=== PATIENT | female | born 1935 | race Caucasian/White ===

== ENCOUNTER 2016-06-27 14:25 | Emergency (ER) | payer OTHER ==
[~2016-06-27] VITALS: Ht 165.1 cm; Wt 68.0 kg
[2016-06-27 14:25] VITALS: BP 127/61
[~2016-06-27 14:25] MED LIST: ASPIRIN ADULT L81 M1 PO; CIPRO500 MG PO; CLARITIN-D 24 H1 T24 PO; CLOPIDOGREL75 MG PO; Cleocin150 MG PO; DOXYCYCLINE MO100 MG PO; GABAPENTIN100 M2 PO; GABAPENTIN400 MG PO; HUMALOG 751 UNIT/0.0 SC; HUMALOG MI100 UNIT/1 SC; HUMALOG MI100 UNIT/1 SQ; HUMALOG MIX75/253 M1 SC; HUMULIN 70/30 703 M1 SC; HUMULIN R100 U/ML SC; HYDRALAZINE HYD50 MG PO; HYDRALAZINE20 MG/M1 IV; INSULIN SC; LISINOPRIL10 MG PO; LOPRESSOR25 MG PO; LOPRESSOR5 MG/5 ML IV; Lopressor25 MG PO; MIRALAX POWDER17 G1 PO; NEURONTIN300 MG PO; NEURONTIN800 MG PO; NOVOLIN 70/30 701 EA; NOVOLIN 70/30 701 EA PO; PLAVIX75 MG PO; PRAVACHOL40 MG PO; PRINIVIL20 MG PO; PROTONIX TR40 MG PO; ZANTAC150 MG PO; ZESTRIL,PRINIVI20 MG PO; ZESTRIL,PRINIVIL5 MG PO; ZOSYN1 SO1 IV
== END 2016-06-27 16:41 | disposition home or self-care (01) ==
LOC: ED 14:25
DX: S60.212A Contusion of left wrist, initial encounter (principal); Z79.4 Long term (current) use of insulin; Z79.01 Long term (current) use of anticoagulants; Z79.899 Other long term (current) drug therapy; W18.30XA Fall on same level, unspecified, initial encounter; Y93.89 Activity, other specified; Y92.9 Unspecified place or not applicable; Y99.9 Unspecified external cause status

== ENCOUNTER 2016-07-23 14:04 | Emergency (ER) | payer MEDICARE ==
[2016-07-23] MEDS ORDERED: RISPERDAL0.5 MG PO (14:49)
[2016-07-23] MEDS ORDERED: REMERON15 M2 PO (14:49)
[2016-07-23] MEDS ORDERED: ASPIRIN CHEWABL81 MG PO (14:50)
[2016-07-23] MEDS ORDERED: CLARITIN LIQUI-10 MG PO (14:50)
[2016-07-23] MEDS ORDERED: VITAMIN D-32000 UNI1 PO (14:50)
[2016-07-23] MEDS ORDERED: PRAVASTATIN SOD40 MG PO (14:50)
[2016-07-23] MEDS ORDERED: ROWEEPRA500 MG PO (14:51)
[2016-07-23] MEDS ORDERED: ACETAMINOPHEN325 M2 PO (14:51)
[2016-07-23] MEDS ORDERED: DOK100 M1 PO (14:51)
[2016-07-23] MEDS ORDERED: LANTUS100 U/ML SC (14:52)
[2016-07-23] MEDS ORDERED: LABETALOL HCL100 MG PO (14:52)
[2016-07-23] MEDS ORDERED: IPRATROPIUM BRO IH (14:53)
[2016-07-23] MEDS ORDERED: LISINOPRIL20 MG PO (14:53)
[2016-07-23] MEDS ORDERED: AMLODIPINE BES1 TA1 PO (14:53)
[2016-07-23 15:21] LABS: BASO # 0.1 10*3/uL (0.0-0.1); BASO % 1.2 % (0.0-1.0); EOS # 0.5 10*3/uL (0.0-0.4); EOS % 4.5 % (1.0-4.0); HEMATOCRIT 35.4 % (37.0-47.0); HEMOGLOBIN 11.5 g/dl (12.0-16.0); IG # 0.1 10*3/uL (0.0-0.1); LYMPH % 8.8 % (27.0-41.0); MEAN CORPUSCULAR HGB 28.3 pg (27.0-31.0); MEAN CORPUSCULAR HGB CONC 32.5 g/dl (33.0-37.0); MONO # 1.4 10*3/uL (0.1-1.0); MONO % 12.4 % (3.0-9.0); NEUT # 8.4 10*3/uL (2.3-7.9); NEUT % 72.5 % (47.0-73.0); PLATELET COUNT AUTOMATED 438 10*3/uL (130-400); RED BLOOD COUNT 4.07 10*6/uL (4.10-5.10); RED CELL DISTRI WIDTH 13.2 % (0-14.5); WHITE BLOOD COUNT 11.5 10*3/uL (4.8-10.8)
[2016-07-23 15:32] LABS: POTASSIUM 5.2 mmol/L (3.5-5.1)
[2016-07-23 16:04] VITALS: BP 148/66
[2016-07-23 16:15] LABS: BILIRUBIN NEGATIVE (NEGATIVE); BLOOD 1+ (NEGATIVE); CLARITY SL CLOUDY (CLEAR); COLOR YELLOW (YELLOW); GLUCOSE NEGATIVE (NEGATIVE); KETONE NEGATIVE (NEGATIVE); LEUKO ESTERASE 3+ (NEGATIVE); NITRITE POSITIVE (NEGATIVE); PH 5.5 (5.0-9.0); PROTEIN TRACE (NEGATIVE); UROBILINOGEN 0.2 E.U./dl (0.2-1.0)
[2016-07-23 16:22] LABS: BACTERIA 3+; MUCOUS TRACE; URINE REFLEX COMMENT YES (NO); WBC TNTC wbc/hpf (0-5)
[2016-07-23] MEDS ORDERED: BACTRIM DS 8001 TA1 PO (16:29)
== END 2016-07-23 16:36 | disposition home or self-care (01) ==
LOC: ED 14:04
PROVIDERS: Emergency Medicine
DX: S00.93XA Contusion of unspecified part of head, initial encounter (principal); M25.562 Pain in left knee; N39.0 Urinary tract infection, site not specified; R31.9 Hematuria, unspecified; I25.10 Atherosclerotic heart disease of native coronary artery without angina pectoris; E66.9 Obesity, unspecified; I12.9 Hypertensive chronic kidney disease with stage 1 through stage 4 chronic kidney disease, or unspecified chronic kidney disease; N18.9 Chronic kidney disease, unspecified; E11.9 Type 2 diabetes mellitus without complications; Z86.73 Personal history of transient ischemic attack (TIA), and cerebral infarction without residual deficits; Z79.82 Long term (current) use of aspirin; Z79.899 Other long term (current) drug therapy; W19.XXXA Unspecified fall, initial encounter; Y93.89 Activity, other specified; Y92.129 Unspecified place in nursing home as the place of occurrence of the external cause; Y99.9 Unspecified external cause status

== ENCOUNTER 2016-08-11 14:09 | Inpatient (IN) | payer MEDICARE ==
[~2016-08-11] VITALS: Ht 162.6 cm; Wt 67.6 kg
--- NOTE | ~2016-08-11 | PR ---
[place], [place] PROGRESS NOTE NAME: DURAN GRAHAM [facility] #: [id number] UNIT #: [id number] ROOM: [facility] DOCTOR: SERJIO MARQUES MD BIRTHDATE: [birth year] DOS: 08/12/2016 SUBJECTIVE: The patient is still not communicating, but looking more awake and alert today. OBJECTIVE: VITAL SIGNS: Blood pressure 132/45, heart rate of 88 beats per minute, breathing 19 times per minute, afebrile, temperature 98.5 degrees Fahrenheit. GENERAL APPEARANCE: The patient is alert and oriented x 3, in no visible distress. Generalized weakness. The patient is not communicating. HEENT AND NECK: Exam within normal limits. CARDIOVASCULAR SYSTEM: Heart rate is regular in rate and rhythm. S1 and S2 normally audible. LUNGS: Clear to auscultation. ABDOMEN: Soft, nontender. No obvious organomegaly. Bowel sounds are present. EXTREMITIES: Without significant cyanosis or edema. IMPRESSION: 1. The patient with severe dehydration, hyperkalemia and acute kidney failure with acute tubular necrosis, improving with hydration. BUN and creatinine were 62 and 1.3 today. Sodium of 150, potassium of 5.2. The patient's kidney failure is being monitored and treated and followed by Nephrology. 2. Coronary artery disease of the [place] vessels without chest pain. 3. Severe hyperkalemia, improved with treatment. The patient was given Kayexalate, bicarb, glucose, calcium gluconate for treatment and potassium levels are being monitored closely. 4. Mixed hyperlipidemia. The patient on Pravachol. 5. Coronary artery disease of the [place] vessels without chest pains. 6. Type 2 diabetes mellitus. Blood sugars are being monitored and treated. 7. Hypotension, resolved with hydration, was secondary to sepsis. SERJIO MARQUES MD CM:PNTRANS 1043 SERJIO MARQUES MD 08/13/16 0209 interface
--- NOTE | ~2016-08-11 | EKG ---
[place], [place] ELECTROCARDIOGRAM REPORT NAME: DURAN GRAHAM UNIT #: [id number] ROOM: 528 DOCTOR: LOUIE BLAND MD BIRTHDATE: [birth year] DOS: 08/11/2016 TIME: 1440 FINDINGS: Normal sinus rhythm at rate of 61. Left anterior fascicular block. Poor precordial R wave progression. Abnormal electrocardiogram. LOUIE BLAND MD CM:EKGRPT:ELECTROCARDIOGRAM REPORT [id number] LOUIE BLAND MD
--- NOTE | ~2016-08-11 | DS ---
[place], [place] DISCHARGE SUMMARY NAME: DURAN GRAHAM [facility] #: [id number] UNIT #: [id number] ROOM: 528 DOCTOR: SERJIO MARQUES MD BIRTHDATE: [birth year] DOS: 08/15/2016 DISCHARGE DIAGNOSES: 1. Severe adult failure to thrive and poor long-term prognosis. 2. Severe dehydration and hyperkalemia and acute over chronic kidney failure from acute tubular necrosis, resolved with treatment. 3. Severe hypernatremia from dehydration, resolved. 4. Severe hyperkalemia, resolved with treatment. 5. Coronary artery disease of the [place] vessels. 6. Hypotension related to sepsis and dehydration, resolved. 7. Type 2 diabetes mellitus. 8. Mixed hyperlipidemia. 9. Uncontrolled type 2 diabetes mellitus with HbA1c of 8. PAST MEDICAL HISTORY: 1. Left occipital stroke. 2. Pancreatic and cecal mass history. 3. Coronary artery disease, 3 cardiac stents placement in 2011 at [facility]. 4. Gastroesophageal reflux disease and esophagitis. 5. Vitamin D deficiency. 6. History of hysterectomy, appendectomy, tonsillectomy and adenoidectomy. HOSPITAL COURSE: The patient was admitted when she presented from [facility] to [facility] with severe hyperkalemia with a potassium level of 6.8. She was also found to be hypernatremic and acute kidney failure, apparently acute tubular necrosis related to dehydration. The patient was treated with hydration and normal saline. She was given Kayexalate, calcium gluconate, sodium bicarbonate, and glucose and potassium normalized. The patient was hydrated with normal saline and serum electrolytes, BUN and creatinine followed, and they have come to baseline with treatment. 1. Severe adult failure to thrive problem and overall poor health. I anticipate similar issues in the future resulting from her overall poor health status. 2. Coronary artery disease of the [place] vessels and stent placements in the past, presently without chest pains. 3. Benign essential hypertension. Blood pressures improved with hydration. The patient was closely monitored in the ICU and later on IMC. 4. Vitamin D deficiency, on replacement. 5. Type 2 diabetes mellitus. Blood sugars are monitored and treated. 6. Mixed hyperlipidemia treated with Pravachol. LABORATORY DATA: Normal serum electrolytes, BUN and creatinine and potassium levels prior to discharging the patient back to the half-way. White cell count of 11,800, hemoglobin 8.4 and generally stable. Urine cultures negative. Hemoglobin A1c of 8. DISCHARGE MANAGEMENT: Check basic metabolic profile and CBC in 1 week, Levemir insulin 20 units subcutaneous daily, Ecotrin 81 mg a day, Plavix 75 mg a day, labetalol 100 mg daily, MiraLax 17 grams b.i.d., Colace 200 mg daily at bedtime, [place], [place] DISCHARGE SUMMARY [facility] #: [id number] UNIT #: [id number] ROOM: 528 DOCTOR: SERJIO MARQUES MD BIRTHDATE: [birth year] simvastatin 40 mg daily, DuoNeb 4 times a day. Dulcolax 10 mg daily p.r.n. for constipation, Dulcolax orally, Dulcolax suppository at bedtime p.r.n. for constipation. Temazepam 15 mg at bedtime p.r.n. for sleep, Tylenol mg t.i.d. p.r.n. for pain and fever. Consult Dr. Katz, negative cleaner group for foot wound and followup and get wound care nurse to follow the patient. One hour time was spent on patient management and discharge today. SERJIO MARQUES MD CM:DISCHARG 1640 232 SERJIO MARQUES MD 08/15/16 2327 interface
--- NOTE | ~2016-08-11 | WRIGHTHP ---
[place], [place] PATIENT HISTORY AND PHYSICAL EXAM NAME: DURAN GRAHAM [facility] #: [id number] UNIT #: [id number] ROOM: [facility] DOCTOR: SERJIO MARQUES MD BIRTHDATE: [birth year] DOS: 08/11/2016 HISTORY OF PRESENT ILLNESS: The patient is an 80-year-old female with past medical history of, 1. Left occipital stroke. 2. Pancreatic and cecal mass. 3. Type 2 diabetes mellitus. 4. Benign essential hypertension. 5. Coronary artery disease of the [place] vessels. 6. Diabetic nephropathy. 7. Coronary artery disease with 3 cardiac stent placements in [address] [facility], gastroesophageal reflux disease and esophagitis, vitamin D deficiency, history of hysterectomy, appendectomy, tonsillectomy and adenoidectomy. The patient was sent over from [facility] to [facility] with severe hyperkalemia and the potassium level of 6.8. Potassium level was found to be even higher in the Emergency Department. In the ER, the patient was diagnosed as having acute hyperkalemia and acute renal failure and recommended for admission and further management. After admission, the patient barely wakes up, she has no complaints. SYSTEMS REVIEW: LUNGS: No recent complains of shortness of breath. GASTROINTESTINAL: No recent nausea, vomiting, diarrhea, or constipation. CARDIOVASCULAR SYSTEM: No recent complaints of any chest pains or palpitations. SOCIAL HISTORY: No recent history of smoking cigarettes, alcohol and drug abuse. FAMILY HISTORY: Noncontributory. ALLERGIES: No known drug allergies. PHYSICAL EXAMINATION: GENERAL: The patient barely wakes up, appears in no discomfort, generally very weak and lethargic. VITAL SIGNS: Blood pressure 125/38, heart rate of 81 beats per minute, breathing 20 times per minute, temp 98 degrees Fahrenheit. Except for the patient lethargic, has generalized weakness. HEENT AND NECK: Extraocular movements are intact. Sclerae are anicteric. Oral mucosa is moist and clean. No obvious facial weakness. Neck is supple without any lymphadenopathy. No thyromegaly. No JVD. No carotid arterial bruits. LUNGS: Clear to auscultation. No wheezing. No rhonchi. CARDIOVASCULAR SYSTEM: Heart rate is regular in rate and rhythm. S1 and S2 normally audible. No significant murmur or any other abnormal cardiac sounds. ABDOMEN: Soft, nontender. No obvious organomegaly. Bowel sounds are present. No obvious herniation. EXTREMITIES: On the right heel, stage 2 decubitus. CENTRAL NERVOUS SYSTEM: Alert and oriented x 3. Cranial nerves II-XII are intact. Speech is normal. The patient is able to move all extremities. Normal [place], [place] PATIENT HISTORY AND PHYSICAL EXAM NAME: DURAN GRAHAM [facility] #: [id number] UNIT #: [id number] ROOM: [facility] DOCTOR: SERJIO MARQUES MD BIRTHDATE: [birth year] muscle strength. Deep tendon reflexes are equal on both sides. Plantars were downgoing. LABORATORY DATA: Potassium level elevated to 7.4, CO2 at 19, magnesium level 3, BUN and creatinine 87 and 2. Sugar of 206. White cell count elevated to 15,000, hemoglobin 10.5. IMPRESSION: 1. The patient presenting with severe dehydration, hyperkalemia and acute kidney failure, probable acute tubular necrosis to be treated with hydration with normal saline. The patient already received Kayexalate. Sodium bicarbonate, calcium gluconate, dextrose and Novolin R insulin was given in the Emergency Department. The patient has been started on hydration with normal saline and I will repeat a stat basic metabolic profile. If the patient does not start improving immediately, I will get a Nephrology consult. 2. 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 3. History of coronary artery disease of the [place] vessels without recent chest pains. 4. Benign essential hypertension with controlled blood pressures to be closely monitored in the ICU. 5. Vitamin D deficiency, to be replaced with supplements. 6. Type 2 diabetes mellitus, we will monitor blood sugars and treat accordingly. 7. Coronary artery disease of the [place] vessels without any recent chest pains. I will continue her aspirin. 8. Mixed hyperlipidemia treated with Pravachol. SERJIO MARQUES MD CM:HISPHYS:PATIENT HISTORY AND PHYSICAL EXAMINATION 1725 25 SERJIO MARQUES MD 08/11/162126 interface
--- NOTE | ~2016-08-11 | PR ---
[place], [place] PROGRESS NOTE NAME: DURAN GRAHAM UNIT #: [id number] ROOM: 528 DOCTOR: SERJIO MARQUES MD BIRTHDATE: [birth year] DOS: 08/14/2016 SUBJECTIVE: The patient is gradually becoming more awake and alert and stronger with treatment. OBJECTIVE: VITAL SIGNS: Blood pressure 120/56, heart rate of 76 beats per minute, breathing 18 times per minute, temperature 98 degrees Fahrenheit. GENERAL APPEARANCE: The patient is alert and oriented x 3, in no visible distress. HEENT AND NECK: Exam within normal limits. CARDIOVASCULAR SYSTEM: Heart rate is regular in rate and rhythm. S1 and S2 normally audible. LUNGS: Clear to auscultation. ABDOMEN: Soft, nontender. No obvious organomegaly. Bowel sounds are present. EXTREMITIES: Without significant cyanosis or edema. Generalized weakness. IMPRESSION: 1. Severe adult failure to thrive. The patient has improved with treatment, but long-term prognosis remains poor. 2. Severe dehydration and hyperkalemia, acute kidney failure and acute tubular necrosis, all improved with hydration. 3. Severe hypernatremia, improving now since her hydration was changed to half normal saline. The patient being encouraged to eat and drink fluids. 4. Severe hyperkalemia related to kidney failure. The acute kidney failure is improving with treatment. 5. Coronary artery disease of [place] vessels without chest pains. 6. Hypotension, dehydration and sepsis, resolved with treatment. 7. Type 2 diabetes mellitus. Blood sugars are being monitored and treated. 8. Mixed hyperlipidemia, treated with Pravachol. 9. Uncontrolled type 2 diabetes mellitus with hemoglobin A1c of 8. Blood sugars are being monitored and treated and are reasonably controlled, ranging between 130-150 mostly during this admission. [place], [place] PROGRESS NOTE NAME: DURAN GRAHAM UNIT #: [id number] ROOM: 528 DOCTOR: SERJIO MARQUES MD BIRTHDATE: [birth year] SERJIO MARQUES MD CM:PNTRANS 1410 0311 SERJIO MARQUES MD 08/15/16 0311 interface
[~2016-08-11 14:09] MED LIST changes: +ACETAMINOPHEN325 M2 PO; +AMLODIPINE BES1 TA1 PO; +ASPIRIN CHEWABL81 MG PO; +BACTRIM DS 8001 TA1 PO; +CLARITIN LIQUI-10 MG PO; +DOK100 M1 PO; +IPRATROPIUM BRO IH; +LABETALOL HCL100 MG PO; +LANTUS100 U/ML SC; +LISINOPRIL20 MG PO; +PRAVASTATIN SOD40 MG PO; +REMERON15 M2 PO; +RISPERDAL0.5 MG PO; +ROWEEPRA500 MG PO; +VITAMIN D-32000 UNI1 PO
[2016-08-11 14:18] VITALS: BP 128/60
[2016-08-11 14:50] LABS: BASO # 0.1 10*3/uL (0.0-0.1); BASO % 0.7 % (0.0-1.0); EOS # 0.8 10*3/uL (0.0-0.4); EOS % 5.1 % (1.0-4.0); HEMATOCRIT 33.7 % (37.0-47.0); HEMOGLOBIN 10.5 g/dl (12.0-16.0); IG # 0.1 10*3/uL (0.0-0.1); LYMPH # 1.7 10*3/uL (1.3-4.4); LYMPH % 11.2 % (27.0-41.0); MEAN CELL VOLUME 89.9 fl (81.0-99.0); MEAN CORPUSCULAR HGB CONC 31.2 g/dl (33.0-37.0); MEAN PLATELET VOLUME 10.2 fl (9.6-12.3); MONO # 0.8 10*3/uL (0.1-1.0); MONO % 4.9 % (3.0-9.0); NEUT # 11.9 10*3/uL (2.3-7.9); NEUT % 77.5 % (47.0-73.0); PLATELET COUNT AUTOMATED 523 10*3/uL (130-400); RED BLOOD COUNT 3.75 10*6/uL (4.10-5.10); RED CELL DISTRI WIDTH 14.3 % (0-14.5); WHITE BLOOD COUNT 15.4 10*3/uL (4.8-10.8)
[2016-08-11 15:04] LABS: POTASSIUM 7.4 mmol/L (3.5-5.1)
[2016-08-11 15:43] VITALS: BP 96/54
[2016-08-11 16:11] LABS: BILIRUBIN NEGATIVE (NEGATIVE); BLOOD NEGATIVE (NEGATIVE); CLARITY CLEAR (CLEAR); COLOR YELLOW (YELLOW); GLUCOSE 1+ (NEGATIVE); KETONE NEGATIVE (NEGATIVE); LEUKO ESTERASE TRACE (NEGATIVE); NITRITE NEGATIVE (NEGATIVE); PROTEIN NEGATIVE (NEGATIVE); UROBILINOGEN 0.2 E.U./dl (0.2-1.0)
[2016-08-11 16:15] VITALS: BP 125/38
[2016-08-11 16:19] LABS: EPITHELIAL CELLS 0-2
[2016-08-11 16:20] LABS: BACTERIA TRACE; URINE REFLEX COMMENT YES (NO)
[2016-08-11] MEDS ORDERED: EXELON9.5 MG/24 TD (17:05)
[2016-08-11] MEDS ORDERED: CYMBALTA60 MG PO (17:06)
[2016-08-11] MEDS ORDERED: NATURE'S BLEND F1 MG PO (17:08)
[2016-08-11] MEDS ORDERED: FLUTICASON0.05 MG/Ac NAS (17:13)
[2016-08-11] MEDS ORDERED: HUMALOG100 UNIT/2 SQ (17:14)
[2016-08-11 18:10] LABS: POTASSIUM 5.8 mmol/L (3.5-5.1)
[2016-08-11 20:00] VITALS: BP 122/47
[2016-08-12] VITALS: BP 132/61
[2016-08-12 04:00] VITALS: BP 130/58
[2016-08-12 05:53] LABS: BASO # 0.1 10*3/uL (0.0-0.1); BASO % 0.8 % (0.0-1.0); EOS # 0.8 10*3/uL (0.0-0.4); EOS % 6.3 % (1.0-4.0); HEMATOCRIT 30.1 % (37.0-47.0); HEMOGLOBIN 9.1 g/dl (12.0-16.0); IG # 0.1 10*3/uL (0.0-0.1); LYMPH # 1.6 10*3/uL (1.3-4.4); LYMPH % 12.3 % (27.0-41.0); MEAN CELL VOLUME 89.9 fl (81.0-99.0); MEAN CORPUSCULAR HGB 27.2 pg (27.0-31.0); MEAN CORPUSCULAR HGB CONC 30.2 g/dl (33.0-37.0); MEAN PLATELET VOLUME 10.8 fl (9.6-12.3); MONO % 7.5 % (3.0-9.0); NEUT # 9.6 10*3/uL (2.3-7.9); NEUT % 72.6 % (47.0-73.0); PLATELET COUNT AUTOMATED 455 10*3/uL (130-400); RED BLOOD COUNT 3.35 10*6/uL (4.10-5.10); RED CELL DISTRI WIDTH 14.4 % (0-14.5); WHITE BLOOD COUNT 13.2 10*3/uL (4.8-10.8)
[2016-08-12 06:12] LABS: MAGNESIUM 2.4 mg/dL (1.5-2.1); PHOSPHOROUS 2.6 mg/dL (2.5-4.9); POTASSIUM 5.2 mmol/L (3.5-5.1)
[2016-08-12 06:18] LABS: PROTHROMBIN TIME 10.3 SECONDS (9.0-12.4)
[2016-08-12 06:19] LABS: BILIRUBIN, TOTAL 0.3 mg/dl (0.2-1.0); FREE T4 1.06 ng/dl (0.76-1.46); THYROID STIM HORMONE (HS) 1.08 uIU/ml (0.358-4.75)
[2016-08-12 08:00] VITALS: BP 132/45
[2016-08-12 09:14] LABS: VITAMIN D, 25-HYDROXY 30.2 ng/mL (30-100)
[2016-08-12 09:21] LABS: FOLIC ACID > 24.00 ng/mL (>5.38)
[2016-08-12 12:00] VITALS: BP 123/37
[2016-08-12 16:00] VITALS: BP 140/60
[2016-08-12 20:00] VITALS: BP 135/58
[2016-08-13] VITALS: BP 130/67
[2016-08-13 04:00] VITALS: BP 165/63
[2016-08-13 06:11] LABS: CARBON DIOXIDE 21 mmol/L (21-32); CHLORIDE 121 mmol/L (98-107); EST GLOM FILT AFRICAN AMERICAN > 60 ml/min; GLUCOSE 151 mg/dL (65-99); SODIUM 150 mmol/L (136-145)
[2016-08-13 06:56] LABS: BUN 38 mg/dl (7-24)
[2016-08-13 06:57] LABS: POTASSIUM 4.1 mmol/L (3.5-5.1)
[2016-08-13 08:00] VITALS: BP 166/67
[2016-08-13 12:00] VITALS: BP 166/67
[2016-08-13 16:00] VITALS: BP 135/55
[2016-08-13 20:00] VITALS: BP 119/53
[2016-08-14] VITALS: BP 153/63
[2016-08-14 06:52] LABS: BUN 23 mg/dl (7-24); CARBON DIOXIDE 22 mmol/L (21-32); CHLORIDE 118 mmol/L (98-107); EST GLOM FILT AFRICAN AMERICAN > 60 ml/min; GLUCOSE 137 mg/dL (65-99); POTASSIUM 3.8 mmol/L (3.5-5.1); SODIUM 148 mmol/L (136-145)
[2016-08-14 08:00] VITALS: BP 120/56
[2016-08-14 12:00] VITALS: BP 178/76
[2016-08-14 16:00] VITALS: BP 151/68
[2016-08-14 20:00] VITALS: BP 135/58
[2016-08-15] VITALS: BP 143/57
[2016-08-15 06:27] LABS: BASO # 0.1 10*3/uL (0.0-0.1); BASO % 0.7 % (0.0-1.0); EOS % 8.4 % (1.0-4.0); HEMATOCRIT 27.1 % (37.0-47.0); HEMOGLOBIN 8.4 g/dl (12.0-16.0); IG # 0.1 10*3/uL (0.0-0.1); LYMPH # 2.5 10*3/uL (1.3-4.4); LYMPH % 21.5 % (27.0-41.0); MEAN CELL VOLUME 89.7 fl (81.0-99.0); MEAN CORPUSCULAR HGB 27.8 pg (27.0-31.0); MEAN PLATELET VOLUME 10.7 fl (9.6-12.3); MONO # 0.9 10*3/uL (0.1-1.0); MONO % 7.5 % (3.0-9.0); NEUT # 7.3 10*3/uL (2.3-7.9); NEUT % 61.4 % (47.0-73.0); PLATELET COUNT AUTOMATED 345 10*3/uL (130-400); RED BLOOD COUNT 3.02 10*6/uL (4.10-5.10); RED CELL DISTRI WIDTH 14.2 % (0-14.5); WHITE BLOOD COUNT 11.8 10*3/uL (4.8-10.8)
[2016-08-15 06:49] LABS: BUN 18 mg/dl (7-24); CARBON DIOXIDE 23 mmol/L (21-32); CHLORIDE 114 mmol/L (98-107); EST GLOM FILT AFRICAN AMERICAN > 60 ml/min; GLUCOSE 142 mg/dL (65-99); POTASSIUM 3.5 mmol/L (3.5-5.1); SODIUM 144 mmol/L (136-145)
[2016-08-15 08:00] VITALS: BP 134/42
[2016-08-15 12:00] VITALS: BP 152/59
[2016-08-15] MEDS ORDERED: LEVEMIR10 ML SC (15:31)
[2016-08-15 16:00] VITALS: BP 168/60
== END 2016-08-15 18:02 | DRG 871 ==
LOC: ED 14:09 → ICCU 15:13 → EDHOLD 15:13 → ICCU 15:44 → 5E 08-13 20:58
PROVIDERS: Emergency Medicine; Internal Medicine
DX: A41.9 Sepsis, unspecified organism (principal); N17.0 Acute kidney failure with tubular necrosis; E87.0 Hyperosmolality and hypernatremia; E87.5 Hyperkalemia; E86.0 Dehydration; N18.9 Chronic kidney disease, unspecified; I25.10 Atherosclerotic heart disease of native coronary artery without angina pectoris; E78.2 Mixed hyperlipidemia; R62.7 Adult failure to thrive; E11.22 Type 2 diabetes mellitus with diabetic chronic kidney disease; I12.9 Hypertensive chronic kidney disease with stage 1 through stage 4 chronic kidney disease, or unspecified chronic kidney disease; E11.65 Type 2 diabetes mellitus with hyperglycemia; E55.9 Vitamin D deficiency, unspecified; K21.9 Gastro-esophageal reflux disease without esophagitis; Z90.49 Acquired absence of other specified parts of digestive tract; Z95.5 Presence of coronary angioplasty implant and graft; Z86.73 Personal history of transient ischemic attack (TIA), and cerebral infarction without residual deficits; Z90.710 Acquired absence of both cervix and uterus

== ENCOUNTER 2016-09-05 15:26 | Inpatient (IN) | payer MEDICARE ==
[~2016-09-05] VITALS: Ht 167.6 cm; Wt 66.8 kg
--- NOTE | ~2016-09-05 | PROC NOTE ---
[place], [place] PROCEDURE NOTE NAME: DURAN GRAHAM [facility] #: [id number] UNIT #: [id number] ROOM: 422 DOCTOR: JOSE REYNA BIRTHDATE: [birth year] DOS: 09/06/2016 MODIFIED BARIUM SWALLOW LOCATION: [facility], room 422, bed 1. DOCTOR: Dr. Huizar. RADIOLOGIST: Dr. Khan. BACKGROUND INFORMATION: The patient, an 80-year-old female, was seen for modified barium swallow. This test was ordered to rule out aspiration and determine most appropriate diet. Reports reveal that patient is coughing on liquids. The patient is diagnosed with pneumonia and severe sepsis. Further medical history includes CVA, hypertension, diabetes, dementia, CAD and glaucoma. This patient currently receives a regular diet and thin liquids. For today's assessment, the patient was alert, but with significant generalized weakness. She was receiving oxygen via nasal cannula. The patient was minimally verbal. Oral peripheral examination revealed presence of natural teeth which were in fair to good condition. Lingual and labial skills were severely impaired in strength and range of motion. The patient was unable to volitionally swallow or cough. METHODS AND MATERIALS USED FOR THE EXAM: The patient was positioned in the lateral plane and examination was viewed under fluoroscopy. The patient was presented with a variety of consistencies to assess swallowing skills including applesauce mixed with barium presented in quarter teaspoon amounts, barium-coated banana, presented in small bite size piece and nectar thick barium taken by cup and presented in single sip size amount. ORAL PHASE: The patient achieved adequate labial seal around cup and spoon with no anterior loss. Bolus formation was mildly impaired with all consistencies. Oral transit time was mildly impaired with puree and solids. Mastication of soft solids was slow but functional. Tongue to palate contact was within normal limits. Tongue to posterior pharyngeal wall contact was within normal limits. Velar functioning was within normal limits with no nasal regurgitation. PHARYNGEAL PHASE: The pharyngeal swallow was mildly to moderately impaired with all consistencies given with premature loss into the vallecula prior to the initiation of the swallow. Once the swallow occurred, laryngeal elevation and epiglottic function were adequate and no penetration or aspiration occurred with any consistency given. ESOPHAGEAL PHASE: This phase of the swallow was not formally assessed during this examination. IMPRESSIONS AND RECOMMENDATIONS: Based upon assessment results, this 80-year-old female presents with a [id number] oropharyngeal dysphagia. She exhibited impaired bolus formation, transfer and delayed swallow. No penetration or aspiration occurred during the study. The patient is at [place], [place] PROCEDURE NOTE NAME: DURAN GRAHAM UNIT #: [id number] ROOM: [facility] DOCTOR: JOSE REYNA BIRTHDATE: [birth year] risk, however, for aspiration due to her condition. Recommend the patient receive a pureed diet and nectar thick liquid. Recommend followup therapy focusing on oral and pharyngeal strengthening exercises, thermal stimulation to help improve initiation of swallow and use of safe swallow strategies such as upright positioning for meals, small bites and sips and alternating consistencies. Education will also be provided to caregivers to ensure safety with highest level diet. Results and recommendations were shared with the patient's nurse who verbalized understanding. Thank you very much for this referral. Should you have any questions regarding this patient, please contact the speech pathologist at [phone]. JOSE REYNA CM:PROCNOTE:PROCEDURE NOTE [phone] JOSE REYNA
--- NOTE | ~2016-09-05 | CON ---
[place], [place] REPORT OF CONSULTATION NAME: DURAN GRAHAM [facility] #: [id number] UNIT #: [id number] ROOM: 422 DOCTOR: KELBY TRUJILLO MD BIRTHDATE: [birth year] DOS: 09/07/2016 REPORT HISTORY OF PRESENT ILLNESS: The patient is a pleasant elderly woman who noticed to have cough and was sent to the Emergency Room. She was found to have halfway acquired pneumonia and sepsis. Further workup revealed that her white count is 26,000 as well as she had progressive anemia. I am subsequently consulted for further evaluation and management. The patient not able to give any history, does open eyes to verbal command. PAST MEDICAL HISTORY: As per record of altered mental status, coronary artery disease, chronic kidney disease, colon neoplasm, CVA, diabetes, fall at halfway, head contusion, obesity, pancreatic mass, poorly-controlled diabetes mellitus, poorly-controlled hypertension, stroke, UTI. SOCIAL HISTORY: snf resident for more than a year. ALLERGIES: No known allergies. MEDICATIONS: On amlodipine, aspirin, vitamin D3, clopidogrel, sodium docusate, Cymbalta, folic acid, insulin, labetalol, lisinopril, loratadine, risperidone, pravastatin. PHYSICAL EXAMINATION: GENERAL: On examination, she is a pleasant woman, not able to give any history, responds to verbal command. VITAL SIGNS: Stable. Afebrile. HEENT: Normocephalic, atraumatic. Pupils reactive. NECK: Supple. No JVD, thyromegaly, or lymphadenopathy. LUNGS: Clear to auscultation. HEART: S1, S2. No S3. ABDOMEN: Soft and nontender. Bowel sounds positive. EXTREMITIES: Positive pulses. NEUROLOGIC: Grossly intact. Moves all extremities. SKIN: Warm and dry. HEMATOLOGIC: No rashes or ulcers. REVIEW OF SYSTEMS: Unable to give review of systems. LABORATORY DATA: Sodium 143, potassium 3.8, chloride 112, bicarbonate 23, BUN 35, creatinine of more than 60. White count of 15.3, hemoglobin 8.0, hematocrit 25.7, platelet count 387. ASSESSMENT: 1. Anemia, probably of chronic disease. 2. Chronic kidney disease. 3. Severe sepsis. 4. Bilateral pneumonia. 5. Leukocytosis, reactive. [place], [place] REPORT OF CONSULTATION NAME: DURAN GRAHAM UNIT #: [id number] ROOM: 422 DOCTOR: CASSANDRA RAMOS,KELBY BIRTHDATE: [birth year] PLAN: Workup for anemia has been initiated. We will review peripheral smears as well as continue antibiotics. I except her hemoglobin and hematocrit to improve once her overall condition improves. If not, then further intervention. In the meantime, if hemoglobin drops further, then further intervention. We will keep a watch on her count. Thanks for consulting and letting me participate in the care of this interesting patient. KELBY TRUJILOL MD CM:CONSTR:REPORT OF CONSULTATION 1233 09/08/16 0117 interface
--- NOTE | ~2016-09-05 | PR ---
[place], [place] PROGRESS NOTE NAME: DURAN GRAHAM UNIT #: [id number] ROOM: 422 DOCTOR: PRABHA RAMOS,ALONA Paredes BIRTHDATE: [birth year] DOS: 09/08/2016 ADDENDUM I agree with the above plans as outlined above. We will follow the patient clinically and adjust accordingly. ALONA ARMANDO MD CM:PNTRANS 19 50 ALONA ARMANDO MD 09/08/16 225 interface
--- NOTE | ~2016-09-05 | PR ---
[place], [place] PROGRESS NOTE NAME: DURAN GRAHAM [facility] #: [id number] UNIT #: [id number] ROOM: 422 DOCTOR: WOLFGANG DANIEL,JULY BIRTHDATE: [birth year] DOS: 09/08/2016 SUBJECTIVE: The patient is an 80-year-old female, being followed for healthcare-associated pneumonia. She had a CT of the abdomen and pelvis that demonstrated multiple pulmonary nodules and probable liver metastasis. Dr. Huizar is following her and recommending hospice; however, she has not been made hospice yet. She is a DNRCC. Blood cultures are negative. Her MRSA screen was negative. Her pneumonia was also demonstrated in the lung bases on the CT of the abdomen and pelvis. She continues with frequent cough. No nausea or vomiting. No diarrhea. No fevers. No rash. Denies any pain. VITAL SIGNS: Show temperature 98.2, pulse 80, respirations 20, BP 152/56. GENERAL: An 80-year-old female in no acute distress, nontoxic in appearance. HEAD, EYES, EARS, NOSE AND THROAT: Normocephalic. No thrush. LUNGS: Coarse rales bilaterally. Respirations even and unlabored. HEART: Regular rhythm. No murmur appreciated. Frequent cough noted. ABDOMEN: Soft, nontender. EXTREMITIES: No edema. Poor musculature. SKIN: Warm, pale, dry, free of rashes. ASSESSMENT: Healthcare-associated pneumonia, possibly CA with liver metastasis. PLAN: Await possible referral for hospice. Continue Zosyn for now. Case discussed with Dr. Alona Armando. ANN FREDY GOSS ALONA ARMANDO MD CM:MARY BETH 175 14 WOLFGANG DANIEL 09/08/16 2020 interface
--- NOTE | ~2016-09-05 | CON ---
[place], [place] REPORT OF CONSULTATION NAME: DURAN GRAHAM [facility] #: [id number] UNIT #: [id number] ROOM: 422 DOCTOR: ISAAK RutherfordMILEY BIRTHDATE: [birth year] DOS: 09/07/2016 WOUND CARE CONSULTATION HISTORY OF PRESENT ILLNESS: This is an 80-year-old female who resides in a nursing care facility. She was admitted with hypoxia and a worsening cough for 3 days. She was felt to have sepsis and correction acquired pneumonia. Her white count was markedly elevated at 26,000. PAST MEDICAL HISTORY: Significant for acute renal failure, bilateral pneumonia, severe sepsis, acute hyperkalemia, hyperglycemia, leukocytosis, normocytic anemia, altered mental status, coronary artery disease, chest pain, chronic kidney disease, colonic neoplasm, contusion of the left breast, CVA, falls at correction, generalized weakness, head contusion, noncompliance with medication regimen, obesity, pancreatic mass, poorly controlled diabetes, poorly controlled hypertension, stroke, urinary tract infection. SOCIAL HISTORY: She is a [facility] resident. She has been there for more than 1 year. Charts do not indicate any smoking history or alcohol use. ALLERGIES: No known drug allergies. CURRENT MEDICATIONS: Zosyn 4.5 g IV q. 6 hours, vancomycin 1000 mg IV, Lovenox 40 subq daily, Humalog sliding scale, pneumococcal vaccine was given, Restoril 15 mg at bedtime p.r.n., Zofran 4 mg IV q.6 hours, milk of mag 30 mL p.o. p.r.n., Dulcolax p.r.n. and Tylenol p.r.n. REVIEW OF SYSTEMS: Really unobtainable at this time. She offers no specific complaints. I was consulted for a pressure injury of her sacral buttock area. When I asked her if she knew how long she has had it, she said possibly a week, but she is not quite sure. Other review of systems are unobtainable at this point. PHYSICAL EXAMINATION: VITAL SIGNS: She is currently afebrile at 98.6, pulse of 77, respirations 20, blood pressure is 144/61, sats are 94% on oxygen. GENERAL: This is an elderly female who appears markedly debilitated, chronically ill, lying in bed with a harsh moist cough noted. She is not in any acute respiratory distress. She is somewhat pale to exam. She is arousable. Her oropharynx is clear. EENT: Extraocular movements are intact. Sclerae anicteric. NECK: There is no JVD. LUNGS: Have occasional scattered rhonchi throughout. CARDIOVASCULAR: S1, S2 regular rate and rhythm. ABDOMEN: Soft, nontender, nondistended, positive bowel sounds. [place], [place] REPORT OF CONSULTATION NAME: DURAN GRAHAM UNIT #: [id number] ROOM: 422 DOCTOR: MILEY MULLIGAN M.D. BIRTHDATE: [birth year] EXTREMITIES: There is no edema. She has a very small ulcer of her heel no more than a size of an eraser head. It is dry small eschar area. There is no purulence or infection. No cellulitis. Her pedal pulses are difficult to feel. Her toes are warm. She has got good capillary refill and there is no calf tenderness. She also has an area that is slightly red on the left foot. She has an offloading boot that is present. There seems to be rubbing on the medial aspect of the metatarsal head area of the foot. So, I would pad and protect this area and watching carefully, so the boot does not create any new ulcerations on her. Her right foot has a small eschar area that is on the plantar aspect of the third digit of the toe. It looks stable due to all the eschar area with a minimal amount of callus around it. It is not tender. It is not infected. There is no drainage and it is dry. Once again, her pedal pulses are difficult to feel. She has got good capillary refill and her toes are warm. On her sacral area, mostly on the buttock area on the right side, there is a purple maroon discoloration consistent with a deep tissue injury on the buttock area that is approximately measuring 4 cm x 1.5 cm. There is no depth. Still now it is closed, it is not open at this time. It is mostly on the right buttock area. LABORATORY DATA: Show white count was 15.3 down from 21.5, hemoglobin is 8, platelets are 387. She has a low lymphocyte count. Reticulocyte count is 2.65. Chem 7 shows a chloride of 114, BUN of 22, creatinine of 0.94, glucose of 137, alk phos is 239, albumin is low at 1.9. She had a chest x-ray done, which showed new small bilateral bibasilar infiltrates. She had swallowing study done. Recommendations for diet were made to receive pureed diet and nectar thickened liquids per speech pathology. ASSESSMENT AND PLAN: Multiple medical problems in this patient who is markedly debilitated. She has multiple pressure ulcers. Orders have been written for them already. I would continue with the skin prep and Optifoam for the buttock area and encourage offloading. She was right on her back side when we entered the room on the wound, so trying to offload it and to avoid direct pressure to this area would be the best thing that we could do. Also, she does have a very small ulcer on her left heel. She already has heel offloading devices. Ordered Optifoam and skin prep to those as well, which is fine. I would like to also have them pad the medial aspect of the left foot to avoid any further pressure areas as it does not seem like it was causing a possible rubbing area on that foot from the heel lift. She does seem to keep her leg externally rotated. We should also try to encourage use of pillows as well to help with this. She is markedly debilitated and has other multiple medical problems that are being managed by her medical team. [place], [place] REPORT OF CONSULTATION NAME: DURAN GRAHAM UNIT #: [id number] ROOM: 422 DOCTOR: MILEY MULLIGAN M.D. BIRTHDATE: [birth year] MILEY MULLIGAN MD CM:CONSTR:REPORT OF CONSULTATION 1524 09/12/16 1208 interface
--- NOTE | ~2016-09-05 | PR ---
[place], [place] PROGRESS NOTE NAME: DURAN GRAHAM UNIT #: [id number] ROOM: 422 DOCTOR: CM PETERSON MD BIRTHDATE: [birth year] DOS: SUBJECTIVE: The patient is an 80-year-old female being followed for aspiration pneumonia. She is alert, confused, yelling out, complaining of back pain. Apparently, hospice has been consulted. Denies any nausea, vomiting or diarrhea. No rash or itch. Cough is improving. No shortness of breath currently. She has been afebrile. Temperature 97.9, pulse 73, respirations 18, BP 162/58. CURRENT MEDICATIONS: Include vitamin D, risperidone, MiraLax, folic acid, Cymbalta, Plavix, aspirin, Norvasc, Exelon, Remeron, Zestril, Keppra, Normodyne, Levemir, Zocor, Mucinex, Zosyn, DuoNeb, Humalog, Restoril, Zofran. LABORATORY DATA: Shows WBC 13.1, platelets 430. BUN 8, creatinine 0.66, AST 65, ALT 66. CT of her abdomen and pelvis showed multiple pulmonary nodules and likely liver metastasis. Her blood cultures are negative. MRSA screen was negative. PHYSICAL EXAMINATION: GENERAL: An 80-year-old female, confused, yelling out, complaining of back pain. HEAD, EYES, EARS, NOSE AND THROAT: Normocephalic. No thrush. LUNGS: Diminished bilaterally with rales. Respirations even and unlabored. HEART: Regular rhythm. No murmur appreciated. ABDOMEN: Soft, nondistended. EXTREMITIES: No edema or cyanosis. SKIN: Warm, pale, dry, free of rashes. ASSESSMENT: Pneumonia, likely aspiration, health care associated. PLAN: She is currently on Zosyn and this may be stopped if she is discharged to [place] with hospice tomorrow. [place], [place] PROGRESS NOTE NAME: DURAN GRAHAM UNIT #: [id number] ROOM: 422 DOCTOR: MC PETERSON MD BIRTHDATE: [birth year] CM PETERSON MD CM:MARY BETH 1743 [id number] CM PETERSON MD 09/09/16 1827 interface
--- NOTE | ~2016-09-05 | PR ---
[place], [place] PROGRESS NOTE NAME: DURAN GRAHAM UNIT #: [id number] ROOM: 422 DOCTOR: PRABHA RAMOS,ALONA Paredes BIRTHDATE: [birth year] DOS: 09/07/2016 ADDENDUM INFECTIOUS DISEASE I agree with the above plans as described and follow the patient up clinically and adjust accordingly. ALONA ARMANDO MD CM:PNTRANS 12 44 ALONA ARMANDO MD 09/08/16 2245 interface
--- NOTE | ~2016-09-05 | PR ---
[place], [place] PROGRESS NOTE NAME: DURAN GRAHAM UNIT #: [id number] ROOM: 422 DOCTOR: PRABHA RAMOS,ALONA Paredes BIRTHDATE: [birth year] DOS: 09/09/2016 ADDENDUM I agree with above plans on the patient's progress. We will follow the patient clinically and make appropriate changes in therapy. ALONA ARMANDO MD CM:PNTRANS 1735 36 ALONA ARMANDO MD 09/11/161836 interface
--- NOTE | ~2016-09-05 | CON ---
[place], [place] REPORT OF CONSULTATION [id number] UNIT #: [id number] ROOM: 422 DOCTOR: WOLFGANG DANIEL,JULY BIRTHDATE: [birth year] DOS: 09/05/2016 HISTORY OF PRESENT ILLNESS: Ruby is an 80-year-old female who was admitted from [facility] with significant leukocytosis, white count of 26,000 down to 21,000, elevated lactic acid as well as elevated BUN and sodium. Chest x-ray showed small bibasal infiltrate. She is now on IV fluids. She was started on vancomycin, Zosyn and Levaquin on admission. ID was consulted for healthcare-associated pneumonia. Chest x-ray film reviewed. MRSA screen is pending. Blood cultures pending. She denies any nausea or vomiting. States she has had a cough for approximately 3 weeks, which is nonproductive, some shortness of breath over the last few days. Also states she has been running fevers, but denies any shaking chills. She is status post a modified barium swallow today, which is pending. PAST MEDICAL HISTORY: As above as well as coronary artery disease, chronic kidney disease, CVA, colon CA, pancreatic mass, diabetes, hypertension. SOCIAL HISTORY: States she has been in [place] for approximately 2 years. Has a long-time boyfriend. Currently, nonsmoker and nondrinker. CURRENT MEDICATIONS: Include Levaquin, vancomycin, Zosyn, Lovenox, Humalog, Restoril. LABORATORY DATA: Cultures as reviewed above. BUN 35, creatinine 0.97, sodium 143, AST 29, ALT 108, alk phos 264, WBCs down to 21.5, platelets 367, lactic acid down 1.7. REVIEW OF SYSTEMS: As above in history of present illness. States she is incontinent of urine and stool. Again, no nausea, vomiting or diarrhea. Dry, nonproductive cough. Shortness of breath that has improved somewhat. No rash or itch. No headache or dizziness. No chest pain or palpitations. She is not ambulatory. Further review of systems unremarkable. ALLERGIES: No known drug allergies. PHYSICAL EXAMINATION: VITAL SIGNS: Show a temp 96, pulse 88, respirations 18, BP 123/57. There are no documented fevers. GENERAL: Alert and responsive 80-year-old female in no acute distress. HEAD, EYES, EARS, NOSE AND THROAT: Normocephalic. No visible thrush. Mucous membranes tacky and discolored with her barium. LUNGS: Crackles bilateral bases. Respirations even and unlabored. HEART: Regular rhythm. No murmur appreciated. ABDOMEN: Soft, positive bowel sounds, nondistended, nontender. [place], [place] REPORT OF CONSULTATION NAME: RUBY GRAHAM UNIT #: [id number] ROOM: [facility] DOCTOR: WOLFGANG DANIEL,JULY BIRTHDATE: [birth year] EXTREMITIES: No edema. Has bilateral foot drop ____ musculature of the lower extremities. SKIN: Warm, pale, dry, free of rashes. She does have discoloration over the sacrum with deep tissue injury. ASSESSMENT: Healthcare-associated pneumonia. PLAN: Continue the Zosyn and vancomycin. Stop the Levaquin. Stop the vancomycin if the MRSA screen is negative. Followup on modified barium swallow. Case discussed with Dr. Alona Armando. JULY FREDY GOSS ALONA ARMANDO MD CM:CONSTR:REPORT OF CONSULTATION 1633 09/06/16 1759 interface
--- NOTE | ~2016-09-05 | CON ---
[place], [place] REPORT OF CONSULTATION NAME: DURAN GRAHAM UNIT #: [id number] ROOM: 422 DOCTOR: PRABHA RAMOS,ALONA Paredes BIRTHDATE: [birth year] DOS: 09/06/2016 ADDENDUM: I agree with the above plans as outlined after reviewing the chart, labs and microbiology. We will make adjustments in antibiotics accordingly as the result return. Thanks for allowing me to see the patient. ALONA ARMANDO MD CM:CONSTR:REPORT OF CONSULTATION 13 09/06/164 interface
--- NOTE | ~2016-09-05 | CON ---
[place], [place] REPORT OF CONSULTATION NAME: DURAN GRAHAM UNIT #: [id number] ROOM: 422 DOCTOR: NEYMAR RAMOS,MORALES BIRTHDATE: [birth year] DOS: 09/09/2016 The patient has presented with multiple medical issues among which was the concern of pulmonary nodules and subsequent CT scan of the abdomen, which showed metastatic liver disease as well. This patient is known with suspected lesion in the cecum a few years ago. At that stage, family and I have talked, they did not want anything to be done, the patient was [facility] and was being taken care of. Subsequently, family had for a short while changed the mind to want the patient investigated and subsequently after the data became more available, the family has decided rightfully so to change the aggressive approach for colonoscopy, EGD to DNR and hospice management. Case has been discussed with Dr. Henley and a note has been produced. Her last H and H was 8 and 26, white blood cell 13, platelet count 430. Comprehensive metabolic panel, potassium of 3.0. Her alkaline phosphatase as well as SGOT was elevated. Her CT scan of the abdomen in detail has been reviewed multiple hepatic metastasis, no pulmonic metastasis, bibasilar pneumonia, all have been recognized. Blood cultures have been negative. PAST MEDICAL HISTORY: Diabetes, hypertension, chronic renal insufficiency, chronic coronary artery disease, pancreatic mass, colon CA already known from few years ago, CVA. PAST SURGICAL HISTORY: Appendectomy, hysterectomy, cataracts, tonsillectomy, cardiac catheterization. FAMILY HISTORY: Noncontributory. SOCIAL HISTORY: Nonsmoker, nonalcohol consumer. ALLERGIES: To no known medications. MEDICATIONS: List has been reviewed. REVIEW OF SYSTEMS: Cannot be obtained from her due to the cognitive incapability. PHYSICAL EXAMINATION: VITAL SIGNS: Stable. HEENT: Benign. NECK: Supple, no thyromegaly. CHEST: Symmetric anatomy, equal expansion. Decreased air entry. HEART: Normal sinus rhythm, no gallop, no murmur. ABDOMEN: Soft. No hepato-organomegaly. Bowel sounds present. No pulsatile mass. EXTREMITIES: No cyanosis, no pedal edema. NEUROLOGIC: Alert and disoriented. [place], [place] REPORT OF CONSULTATION NAME: DURAN GRAHAM UNIT #: [id number] ROOM: 422 DOCTOR: NEYMAR RAMOS,MORALES BIRTHDATE: [birth year] LABORATORY DATA: Reviewed. Records reviewed. 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 Other adjunctive diagnoses as outlined in the paragraph of past medical and surgical history. PLAN AND DISCUSSION: Supportive management, hospice clinical reassessment. MORALES BLACKMON MD CM:CONSTR:REPORT OF CONSULTATION 1748 09/12/16 1301 interface
--- NOTE | ~2016-09-05 | PR ---
[place], [place] PROGRESS NOTE NAME: DURAN GRAHAM [facility] #: [id number] UNIT #: [id number] ROOM: 422 DOCTOR: KELBY TRUJILLO MD BIRTHDATE: [birth year] DOS: 09/08/2016 SUBJECTIVE: The patient is doing better. Vitals stable. She is afebrile. She is more alert. REVIEW OF SYSTEMS HEENT: No trouble swallowing. No double vision. No loss of vision. No pain. ENT AND RESPIRATORY: No wheeze. No change in voice. No cough. No shortness of breath. No coughing up blood. No epistaxis. CARDIOLOGIC: No chest pain. No dizziness. No irregular heartbeat. No leg edema. No palpitations. No shortness of breath. HEMATOLOGIC AND LYMPH: No past transfusion. No fatigue. No loss of appetite. No easy bruising. GASTROENEROLOGIC: No change in bowel habits. No vomiting blood. No abdominal cramping. No nausea. No vomiting. No diarrhea. No constipation. No blood in stool. FEMALE REPRODUCTIVE: No dyspareunia. No pelvic pain. MUSCULOSKELETAL: No back pain. No muscle pain or weakness. No tingling/numbness. UROLOGIC: No pain with urination. No difficulty urinating. No frequent urination. NEUROLOGIC: No burning pain in feet. No trouble with coordination. No loss of consciousness. No headache. No tingling/numbness. No memory loss. PHYSICAL EXAMINATION HEENT: Normocephalic, atraumatic NECK AND THYROID: Supple. No JVD, thyromegaly, or lymphadenopathy. HEART: Normal S1, S2. Regular rate and rhythm. LUNGS: Clear to auscultation and percussion. ABDOMEN: Soft. Nontender, nondistended. Bowel sounds present. EXTREMITIES: Normal ROM. No clubbing. No edema. LABORATORY DATA: EGFR is 57. Total protein 5.6. TIBC 169, iron of 11, saturation 6. Other workup pending. ASSESSMENT: 1. Anemia with a component of iron deficiency. 2. Bilateral pneumonia. 3. Sepsis. 4. Leukocytosis which is getting much better. PLAN: I will continue broad spectrum antibiotics as well as wait for overall condition to improve. Other workup for anemia including hemolytic workup has been ordered depending on further intervention. I expect the things to improve as her overall condition improves. [place], [place] PROGRESS NOTE NAME: DURAN GRAHAM UNIT #: [id number] ROOM: 422 DOCTOR: KELBY TRUJILLO MD BIRTHDATE: [birth year] KELBY TRUJILLO MD CM:PNTRANS 7 2 KELBY TRUJILLO MD 09/08/16 09 interface
--- NOTE | ~2016-09-05 | PR ---
[place], [place] PROGRESS NOTE NAME: DURAN GRAHAM UNIT #: [id number] ROOM: 422 DOCTOR: WOLFGANG DANIEL BIRTHDATE: [birth year] DOS: Duran is an 80-year-old female from ____ senior care who is being followed for healthcare-associated pneumonia and significant leukocytosis. WBCs are improving, now down to 15 today. Her MRSA screen is negative. Blood cultures are negative. Sputum culture unobtainable. She states her cough is a little better. Denies any nausea, vomiting, diarrhea. No rash or itch. She has been afebrile. LABORATORY DATA: Show WBC 15.3, platelets 387, BUN 22, creatinine 0.94. LFTs within normal limits. Albumin 1.9. VITAL SIGNS: Temp 98.6, pulse 77, respirations 20, BP 144/61. CURRENT MEDICATIONS: Include Mucinex, Zosyn, DuoNebs, vancomycin, Lovenox, Humalog, Restoril. PHYSICAL EXAMINATION: GENERAL: An 80-year-old female, frequent cough, nonproductive but loose. HEAD, EYES, EARS, NOSE AND THROAT: Normocephalic, no thrush. LUNGS: Coarse bilateral bases, right greater than left. Respirations even and unlabored. HEART: Regular rhythm. No murmur appreciated. ABDOMEN: Soft, nondistended. EXTREMITIES: With some contractures, no edema. SKIN: Warm, pale, dry, free of rashes. ASSESSMENT: Healthcare-associated pneumonia ____ senior care patient. PLAN: Her MRSA screen is negative. We will stop the vancomycin. Continue the Zosyn. Modified barium swallow reviewed. JULY FREDY GOSS [place], [place] PROGRESS NOTE NAME: DURAN GRAHAM UNIT #: [id number] ROOM: 422 DOCTOR: WOLFGANG DANIELJULY BIRTHDATE: [birth year] KATARZYNA WADE MD CM:PNTRANS 1522 1622 [facility] 09/07/16 1636 interface
[~2016-09-05 15:26] MED LIST changes: +CYMBALTA60 MG PO; +EXELON9.5 MG/24 TD; +FLUTICASON0.05 MG/Ac NAS; +HUMALOG100 UNIT/2 SQ; +LEVEMIR10 ML SC; +NATURE'S BLEND F1 MG PO
[2016-09-05 15:37] VITALS: BP 108/53
[2016-09-05] MEDS ORDERED: RISPERDAL0.5 MG PO (15:39)
[2016-09-05] MEDS ORDERED: IPRATROPIUM BR2.5 ML IH (15:42)
[2016-09-05] MEDS ORDERED: HUMALOG100 UNIT/2 SQ (15:44)
[2016-09-05 16:27] LABS: HEMOGLOBIN 9.1 g/dl (12.0-16.0); MEAN CELL VOLUME 88.4 fl (81.0-99.0); MEAN CORPUSCULAR HGB 27.7 pg (27.0-31.0); MEAN CORPUSCULAR HGB CONC 31.4 g/dl (33.0-37.0); MEAN PLATELET VOLUME 10.6 fl (9.6-12.3); PLATELET COUNT AUTOMATED 438 10*3/uL (130-400); RED BLOOD COUNT 3.28 10*6/uL (4.10-5.10); WHITE BLOOD COUNT 26.1 10*3/uL (4.8-10.8)
[2016-09-05 16:28] VITALS: BP 124/58
[2016-09-05 16:35] LABS: INTERNATIONAL NORM RATIO 0.9 (2.0-3.5)
[2016-09-05 16:45] LABS: ALBUMIN 2.3 gm/dl (3.1-4.5); BILIRUBIN, TOTAL 0.5 mg/dl (0.2-1.0); POTASSIUM 4.1 mmol/L (3.5-5.1); TOTAL PROTEIN 6.8 gm/dL (6.4-8.2)
[2016-09-05 16:46] LABS: CKMB 0.8 ng/ml (0.5-3.6); TROPONIN I 0.036 ng/ml (<0.045)
[2016-09-05 16:54] LABS: BASOPHIL # 0.3 10*3/uL (0-0.1); BASOPHILS 1 % (0-1); EOSINOPHIL # 0.3 10*3/uL (0-0.4); EOSINOPHILS 1 % (1-4); LYMPHOCYTE # 2.6 10*3/uL (1.3-4.4); MONOCYTE # 2.6 10*3/uL (0.1-1.0); NEUTROPHIL # 20.4 10*3/uL (2.3-7.9); NEUTROPHILS 78 % (47-73); TOTAL CELLS COUNTED 100 #CELLS
[2016-09-05 16:55] LABS: PLATELET SUFFICIENCY NORMAL (NORMAL); POLYCHROMASIA SLIGHT
[2016-09-05 16:56] LABS: HYPOCHROMIA SLIGHT; MICROCYTOSIS SLIGHT
[2016-09-05 17:46] VITALS: BP 122/66
[2016-09-05 18:25] LABS: LA>2 REFLEX 2 HR DRAW NOW
[2016-09-05 20:00] VITALS: BP 133/49
[2016-09-05 20:15] VITALS: BP 133/49
[2016-09-05] MEDS ORDERED: EXELON PO (20:23)
[2016-09-05] MEDS ORDERED: IPRATROPIUM PO (20:30)
[2016-09-05] MEDS ORDERED: ALBU PO (20:30)
[2016-09-05] MEDS ORDERED: AMLODIPINE BESY10 MG PO (20:36)
[2016-09-06] VITALS: BP 121/53
[2016-09-06 06:32] LABS: HEMATOCRIT 26.6 % (37.0-47.0); HEMOGLOBIN 8.2 g/dl (12.0-16.0); MEAN CELL VOLUME 89.3 fl (81.0-99.0); MEAN CORPUSCULAR HGB 27.5 pg (27.0-31.0); MEAN CORPUSCULAR HGB CONC 30.8 g/dl (33.0-37.0); MEAN PLATELET VOLUME 10.2 fl (9.6-12.3); PLATELET COUNT AUTOMATED 367 10*3/uL (130-400); RED BLOOD COUNT 2.98 10*6/uL (4.10-5.10); RED CELL DISTRI WIDTH 14.9 % (0-14.5); WHITE BLOOD COUNT 21.5 10*3/uL (4.8-10.8)
[2016-09-06 06:48] LABS: HEMOGLOBIN A1c 7.7 % (4.8-5.6)
[2016-09-06 06:52] LABS: EOSINOPHIL # 0.4 10*3/uL (0-0.4); EOSINOPHILS 2 % (1-4); LYMPHOCYTE # 1.5 10*3/uL (1.3-4.4); METAMYELOCYTES 1 % (0-0); MONOCYTE # 1.3 10*3/uL (0.1-1.0); NEUTROPHIL # 18.1 10*3/uL (2.3-7.9); NEUTROPHILS 84 % (47-73); TOTAL CELLS COUNTED 100 #CELLS
[2016-09-06 06:53] LABS: PLATELET SUFFICIENCY NORMAL (NORMAL); POLYCHROMASIA SLIGHT
[2016-09-06 07:07] LABS: CHLORIDE 112 mmol/L (98-107); POTASSIUM 3.8 mmol/L (3.5-5.1); SODIUM 143 mmol/L (136-145)
[2016-09-06 07:19] LABS: ALBUMIN 1.9 gm/dl (3.1-4.5); ALKALINE PHOSPHATASE 264 U/L (45-117); BILIRUBIN, TOTAL 0.6 mg/dl (0.2-1.0); BUN 35 mg/dl (7-24); CARBON DIOXIDE 23 mmol/L (21-32); CHOLESTEROL 91 mg/dL (<200); EST GLOM FILT AFRICAN AMERICAN > 60 ml/min; GLUCOSE 148 mg/dL (65-99); HDL CHOLESTEROL 36 mg/dl (40-60); LDL CHOLESTEROL 38 mg/dL (9-159); MAGNESIUM 1.8 mg/dL (1.5-2.1); PHOSPHOROUS 3.2 mg/dL (2.5-4.9); SGOT/AST 29 IU/L (3-35); SGPT/ALT 108 U/L (12-78); THYROID STIM HORMONE (HS) 0.964 uIU/ml (0.358-4.75); TOTAL PROTEIN 5.8 gm/dL (6.4-8.2); TRIGLYCERIDES 83 mg/dl (<150); VLDL CHOLESTEROL 17 mg/dL (6-40)
[2016-09-06 07:22] LABS: VITAMIN D, 25-HYDROXY 23.7 ng/mL (30-100)
[2016-09-06 07:27] LABS: FOLIC ACID > 24.00 ng/mL (>5.38)
[2016-09-06 08:00] VITALS: BP 110/50
[2016-09-06 12:00] VITALS: BP 121/51
[2016-09-06 13:42] LABS: PROTHROMBIN TIME 10.3 SECONDS (9.0-12.4)
[2016-09-06 16:00] VITALS: BP 123/57
[2016-09-06 20:00] VITALS: BP 140/51
[2016-09-07] VITALS: BP 160/70
[2016-09-07 04:00] VITALS: BP 135/63
[2016-09-07 06:26] LABS: HEMATOCRIT 25.7 % (37.0-47.0); MEAN CELL VOLUME 88.3 fl (81.0-99.0); MEAN CORPUSCULAR HGB 27.5 pg (27.0-31.0); MEAN CORPUSCULAR HGB CONC 31.1 g/dl (33.0-37.0); MEAN PLATELET VOLUME 11.1 fl (9.6-12.3); PLATELET COUNT AUTOMATED 387 10*3/uL (130-400); RED BLOOD COUNT 2.91 10*6/uL (4.10-5.10); RED CELL DISTRI WIDTH 14.5 % (0-14.5); WHITE BLOOD COUNT 15.3 10*3/uL (4.8-10.8)
[2016-09-07 06:40] LABS: ALBUMIN 1.9 gm/dl (3.1-4.5); ALKALINE PHOSPHATASE 239 U/L (45-117); BILIRUBIN, TOTAL 0.6 mg/dl (0.2-1.0); CARBON DIOXIDE 23 mmol/L (21-32); CHLORIDE 114 mmol/L (98-107); EST GLOM FILT AFRICAN AMERICAN > 60 ml/min; GLUCOSE 137 mg/dL (65-99); POTASSIUM 3.7 mmol/L (3.5-5.1); SGOT/AST 27 IU/L (3-35); SGPT/ALT 75 U/L (12-78); SODIUM 145 mmol/L (136-145); TOTAL PROTEIN 5.6 gm/dL (6.4-8.2)
[2016-09-07 06:51] LABS: BUN 22 mg/dl (7-24)
[2016-09-07 07:09] LABS: EOSINOPHIL # 0.6 10*3/uL (0-0.4); EOSINOPHILS 4 % (1-4); LYMPHOCYTE # 1.8 10*3/uL (1.3-4.4); MONOCYTE # 0.6 10*3/uL (0.1-1.0); MYELOCYTES 1 % (0-0); NEUTROPHIL # 12.1 10*3/uL (2.3-7.9); NEUTROPHILS 79 % (47-73); PLATELET SUFFICIENCY NORMAL (NORMAL); TOTAL CELLS COUNTED 100 #CELLS
[2016-09-07 07:10] LABS: HYPOCHROMIA SLIGHT; POLYCHROMASIA SLIGHT
[2016-09-07 08:05] VITALS: BP 130/55
[2016-09-07 10:10] LABS: RETICULOCYTE % 2.65 % (0.50-2.50)
[2016-09-07 10:11] LABS: IRF 15.8 % (2.4-13.3); RET-He 23.2 pg (32.1-37.9)
[2016-09-07 10:27] LABS: IRON 11 ug/dL (50-170); IRON SATURATION 6 %; UIBC 158 ug/dL (110-365)
[2016-09-07 11:02] LABS: FERRITIN 72.3 ng/mL (10.0-291.0)
[2016-09-07 12:00] VITALS: BP 144/61
[2016-09-07 16:00] VITALS: BP 154/50
[2016-09-07 20:00] VITALS: BP 157/63
[2016-09-08] VITALS: BP 139/60
[2016-09-08 06:11] LABS: RBC, FOLATE HEMATOCRIT 24.4 % (34.0-46.6)
[2016-09-08 06:11] LABS: HEMATOCRIT 27.4 % (37.0-47.0); HEMOGLOBIN 8.4 g/dl (12.0-16.0); MEAN CELL VOLUME 89.3 fl (81.0-99.0); MEAN CORPUSCULAR HGB 27.4 pg (27.0-31.0); MEAN CORPUSCULAR HGB CONC 30.7 g/dl (33.0-37.0); MEAN PLATELET VOLUME 10.8 fl (9.6-12.3); PLATELET COUNT AUTOMATED 426 10*3/uL (130-400); RED BLOOD COUNT 3.07 10*6/uL (4.10-5.10); RED CELL DISTRI WIDTH 14.5 % (0-14.5); WHITE BLOOD COUNT 12.6 10*3/uL (4.8-10.8)
[2016-09-08 06:38] LABS: EOSINOPHIL # 0.3 10*3/uL (0-0.4); EOSINOPHILS 2 % (1-4); LYMPHOCYTE # 1.5 10*3/uL (1.3-4.4); MONOCYTE # 1.8 10*3/uL (0.1-1.0); NEUTROPHIL # 9.1 10*3/uL (2.3-7.9); NEUTROPHILS 72 % (47-73); TOTAL CELLS COUNTED 100 #CELLS
[2016-09-08 06:39] LABS: PLATELET SUFFICIENCY HIGH (NORMAL)
[2016-09-08 08:00] VITALS: BP 124/69
[2016-09-08 12:00] VITALS: BP 157/69
[2016-09-08 16:00] VITALS: BP 152/56
[2016-09-08 20:00] VITALS: BP 136/59
[2016-09-09] VITALS: BP 160/60
[2016-09-09 07:19] LABS: HEMATOCRIT 26.1 % (37.0-47.0); MEAN CELL VOLUME 87.3 fl (81.0-99.0); MEAN CORPUSCULAR HGB 26.8 pg (27.0-31.0); MEAN CORPUSCULAR HGB CONC 30.7 g/dl (33.0-37.0); MEAN PLATELET VOLUME 10.7 fl (9.6-12.3); PLATELET COUNT AUTOMATED 430 10*3/uL (130-400); RED BLOOD COUNT 2.99 10*6/uL (4.10-5.10); RED CELL DISTRI WIDTH 14.3 % (0-14.5); WHITE BLOOD COUNT 13.1 10*3/uL (4.8-10.8)
[2016-09-09 07:35] LABS: ALBUMIN 1.8 gm/dl (3.1-4.5); ALKALINE PHOSPHATASE 373 U/L (45-117); BILIRUBIN, TOTAL 0.9 mg/dl (0.2-1.0); BUN 8 mg/dl (7-24); CARBON DIOXIDE 24 mmol/L (21-32); CHLORIDE 113 mmol/L (98-107); EST GLOM FILT AFRICAN AMERICAN > 60 ml/min; GLUCOSE 99 mg/dL (65-99); SGOT/AST 65 IU/L (3-35); SGPT/ALT 66 U/L (12-78); SODIUM 146 mmol/L (136-145); TOTAL PROTEIN 5.7 gm/dL (6.4-8.2)
[2016-09-09 07:44] LABS: BASOPHIL # 0.1 10*3/uL (0-0.1); BASOPHILS 1 % (0-1); EOSINOPHIL # 0.8 10*3/uL (0-0.4); EOSINOPHILS 6 % (1-4); METAMYELOCYTES 1 % (0-0); MONOCYTE # 0.7 10*3/uL (0.1-1.0); NEUTROPHIL # 10.3 10*3/uL (2.3-7.9); NEUTROPHILS 79 % (47-73); TOTAL CELLS COUNTED 100 #CELLS
[2016-09-09 07:45] LABS: PLATELET SUFFICIENCY HIGH (NORMAL); POLYCHROMASIA SLIGHT
[2016-09-09 08:00] VITALS: BP 158/66
[2016-09-09 12:00] VITALS: BP 162/62
[2016-09-09 16:00] VITALS: BP 162/58
[2016-09-09] MEDS ORDERED: AUGMENTIN 875875 MG PO (17:44)
== END 2016-09-09 17:46 | disposition hospice, home (50) | DRG 871 ==
LOC: ED 15:26 → 4E 18:00 → EDHOLD 18:00 → ICCU 19:21 → 4E 22:54
PROVIDERS: Internal Medicine; Physician Assistant; Student in an Organized Health Care Education/Training Program
PROC: BD11YZZ Fluoroscopy of Esophagus using Other Contrast (ICD-10-PCS; principal; 2016-09-06)
DX: A41.9 Sepsis, unspecified organism (principal); J18.9 Pneumonia, unspecified organism; N17.9 Acute kidney failure, unspecified; E11.22 Type 2 diabetes mellitus with diabetic chronic kidney disease; C22.8 Malignant neoplasm of liver, primary, unspecified as to type; E11.622 Type 2 diabetes mellitus with other skin ulcer; C34.90 Malignant neoplasm of unspecified part of unspecified bronchus or lung; D50.9 Iron deficiency anemia, unspecified; Z66 Do not resuscitate; R65.20 Severe sepsis without septic shock; I25.10 Atherosclerotic heart disease of native coronary artery without angina pectoris; N18.9 Chronic kidney disease, unspecified; E11.65 Type 2 diabetes mellitus with hyperglycemia; E87.5 Hyperkalemia; L89.90 Pressure ulcer of unspecified site, unspecified stage; Z85.038 Personal history of other malignant neoplasm of large intestine; Z79.82 Long term (current) use of aspirin; Z86.73 Personal history of transient ischemic attack (TIA), and cerebral infarction without residual deficits; Z91.81 History of falling; Z79.4 Long term (current) use of insulin; Z79.899 Other long term (current) drug therapy

== ENCOUNTER 2016-09-09 18:08 | Inpatient (IN) | payer OTHER, MEDICARE ==
[~2016-09-09] VITALS: Ht 165.1 cm; Wt 65.8 kg
--- NOTE | ~2016-09-09 | PR ---
[place], [place] PROGRESS NOTE NAME: DURAN GRAHAM [facility] #: [id number] UNIT #: [id number] ROOM: 422 DOCTOR: JUSTINE BATRES MD BIRTHDATE: [birth year] DOS: SUBJECTIVE: The patient has been admitted to the hospital with multiple problems including advanced carcinoma of the colon with metastases, bilateral pneumonia, severe sepsis, acute renal failure, hypoglycemia, normocytic anemia, leukocytosis, metastasis and at present, do not resuscitate and in hospice care and to keep her free of pain and in vest and at present, she is just lying in the bed comfortably. She is denying any pain. No nausea, no vomiting. She had some cough before, but she is feeling better from that now. OBJECTIVE: HEART: Regular. CHEST: Having few rhonchi with no crepitation. ABDOMEN: No edema of leg. No tenderness in the abdomen. VITAL SIGNS: Blood pressure is 131/66, pulse 72, respirations 16, temperature 96.9. JUSTINE BATRES MD CM:PNTRANS 0700 06 JUSTINE BATRES MD 09/11/162305 interface
[~2016-09-09 18:08] MED LIST changes: +ALBU PO; +AMLODIPINE BESY10 MG PO; +AUGMENTIN 875875 MG PO; +EXELON PO; +IPRATROPIUM BR2.5 ML IH; +IPRATROPIUM PO
[2016-09-09 20:00] VITALS: BP 154/59
[2016-09-10] VITALS: BP 152/60
[2016-09-10 08:00] VITALS: BP 130/62
[2016-09-10 12:00] VITALS: BP 142/56
[2016-09-10 16:00] VITALS: BP 154/54
[2016-09-11] VITALS: BP 131/66
[2016-09-11 08:00] VITALS: BP 124/62; BP 127/68
[2016-09-11 12:00] VITALS: BP 135/52
[2016-09-11 16:00] VITALS: BP 110/46
[2016-09-11 20:00] VITALS: BP 130/80
[2016-09-12] VITALS: BP 135/53
[2016-09-12 08:00] VITALS: BP 141/57
[2016-09-12 16:00] VITALS: BP 152/72
[2016-09-12 20:00] VITALS: BP 163/65
[2016-09-13 07:58] VITALS: BP 120/50
== END 2016-09-13 13:27 | disposition other institution (70) | DRG 871 ==
LOC: 4E 18:08
DX: A41.9 Sepsis, unspecified organism (principal); J18.9 Pneumonia, unspecified organism; N17.9 Acute kidney failure, unspecified; E11.22 Type 2 diabetes mellitus with diabetic chronic kidney disease; E11.65 Type 2 diabetes mellitus with hyperglycemia; C18.9 Malignant neoplasm of colon, unspecified; N39.0 Urinary tract infection, site not specified; D64.9 Anemia, unspecified; I12.9 Hypertensive chronic kidney disease with stage 1 through stage 4 chronic kidney disease, or unspecified chronic kidney disease; E87.5 Hyperkalemia; R65.20 Severe sepsis without septic shock; I25.10 Atherosclerotic heart disease of native coronary artery without angina pectoris; Z66 Do not resuscitate; Z51.5 Encounter for palliative care; N18.9 Chronic kidney disease, unspecified; E66.9 Obesity, unspecified; Z91.14 Patient's other noncompliance with medication regimen; Z86.73 Personal history of transient ischemic attack (TIA), and cerebral infarction without residual deficits; Z68.23 Body mass index [BMI] 23.0-23.9, adult; Z79.82 Long term (current) use of aspirin; Z79.4 Long term (current) use of insulin; Z79.899 Other long term (current) drug therapy